=== PATIENT | male | born 1995 | race Caucasian/White ===

== ENCOUNTER 2020-06-03 12:46 | Emergency (ER) | payer OTHER ==
[2020-06-03] MEDS ORDERED: PREDNISONE 20 M20 MG PO (15:29)
[2020-06-03] MEDS ORDERED: PEPCID40 MG PO (15:29)
[2020-06-03] MEDS ORDERED: BENADRYL 50MG C50 MG PO (15:29)
== END 2020-06-03 15:34 | disposition home or self-care (01) ==
LOC: ER1 12:46
DX: K12.2 Cellulitis and abscess of mouth (principal); R21 Rash and other nonspecific skin eruption; I10 Essential (primary) hypertension; Z90.89 Acquired absence of other organs; F17.220 Nicotine dependence, chewing tobacco, uncomplicated
CPT/HCPCS: 87081; 87880; 99284